=== PATIENT | male | born 1970 ===

== ENCOUNTER 2024-03-14 14:58 | Emergency (ER) | payer OTHER, SELFPAY ==
[2024-03-14 15:00] VITALS: BP 205/106
[2024-03-14 15:28] VITALS: BMI 43.9
--- NOTE | 2024-03-14 15:28 | ED.GENMED ---
History of Present Illness
<Carolina Fang PA-C - Last Filed: 03/14/24 18:57>
General
Chief Complaint: Abdominal Pain
Source: patient and family (sister at bedside)
Exam Limitations: none
Time Seen by Provider: 03/14/24 15:18
Nursing documentation reviewed up to this point in time: agreed with
History of Present Illness
History of Present Illness:
53-year-old male with history hypertension, hyperlipidemia, gout presenting to the emergency department for evaluation of acute onset left flank pain about 2 hours prior to arrival. Patient states he was standing up having a drink when he noticed
severe, sharp pain in his left flank radiating around to his left groin. Pain has been relatively constant since. Patient endorses some mild associated nausea and diaphoresis. Patient denies any associated fevers, vomiting, chest pain, shortness
of breath. No urinary symptoms. No history of kidney stones.
Patient does note that he has had this very intermittent pain in his left upper flank over the past few months which she thought was a muscle strain.
Review of Systems
<Carolina Fang PA-C - Last Filed: 03/14/24 18:57>
Review of Systems
Allergies reviewed?: Yes
All Other Systems: ROS reviewed and negative except as documented in HPI and ROS
Phy Exam
<Carolina Fang PA-C - Last Filed: 03/14/24 18:57>
Physical Exam
Physical Exam:
Vitals: Hypertensive, otherwise vital signs stable. Afebrile
General: Patient is moderately uncomfortable due to pain. Nontoxic appearing
Skin: Warm and dry, no rashes or lesions
Head: Normocephalic, atraumatic
Eyes: Sclera nonicteric. EOMs intact. No nystagmus.
Throat: Protecting airway
Neck: Normal ROM, no cervical spine tenderness, no meningismus
Cardiac: Regular rate and rhythm, no murmurs.
Pulm: Normal respiratory effort, no wheezes, rales, rhonchi heard on exam.
Abdomen: Abdomen soft. No abdominal tenderness. No CVA tenderness. No rash or ecchymoses.
Extremities: No evidence of cyanosis or edema. Great distal pulses
Neuro: Grossly intact.
Psychiatric: Normal affect.
Course
<Carolina Fang PA-C - Last Filed: 03/14/24 18:57>
Orders/Labs/Results
Orders:
Orders
03/14/24 15:29
0.9% Sodium Chloride 1000 ml [Nss] 1,000 ml IV BOLUS
Ketorolac [Toradol] 15 mg IV NOW STA
Ondansetron Injectable [Zofran] 4 mg IV NOW STA
03/14/24 15:30
CT Abd/pel Without Iv Or Oral Urgent
Comment:
Reason For Exam: Acute onset left flank pain
03/14/24 15:43
Complete Blood Count/With Diff Urgent
Comprehensive Metabolic Panel Urgent
Urinalysis Reflex To Culture Urgent
Date Specimen was Collected: 03/14/24
Time Specimen was Collected: 15:31
Urine Microscopic Reflex Cult Urgent
Urine Culture Urgent
FOSTER Source: U
Specimen Description:
Date Specimen was Collected: 03/14/24
Time Specimen was Collected: 15:31
03/14/24 17:27
Tamsulosin [Flomax] 0.4 mg PO NOW STA
Abnormal Lab Results
03/14/24
15:43
Abs Immat Gran (auto) 0.1 H 10^3/uL
(0-0.05)
Absolute Neuts (auto) 7.0 H 10^3/uL
(1.4-6.5)
Absolute Monos (auto) 0.7 H 10^3/uL
(0.1-0.6)
Lymphocytes % 18.9 L %
(20.5-51.1)
BUN 27 H mg/dl
(9-20)
Glucose 115 H mg/dl
(70-99)
Total Bilirubin 2.1 H mg/dl
(0.2-1.3)
ALT 57 H U/L
(0-50)
Albumin 5.1 H g/dl
(3.5-5.0)
Urine Ketones Trace A
(Negative)
Ur Occult Blood Reflex 4+ A
(Negative)
Urine RBC 50-60 A /HPF
(0-2)
Urine Bacteria (Reflex) Many A
(Negative)
03/14/24 15:43
03/14/24 15:43
Vital Signs
Initial and Last Documented VS:
Initial Vital Signs
Temp Pulse Resp BP Pulse Ox
97.6 F 74 16 205/106 98
03/14/24 15:00 03/14/24 15:00 03/14/24 15:00 03/14/24 15:00 03/14/24 15:00
Last Documented Vital Signs
Temp Pulse Resp BP Pulse Ox
97.6 F 74 20 146/91 98
03/14/24 15:00 03/14/24 15:00 03/14/24 17:24 03/14/24 17:24 03/14/24 15:00
<Roberta Estrella DO - Last Filed: 03/15/24 12:45>
Orders/Labs/Results
Orders:
Orders
03/14/24 15:29
0.9% Sodium Chloride 1000 ml [Nss] 1,000 ml IV BOLUS
Ketorolac [Toradol] 15 mg IV NOW STA
Ondansetron Injectable [Zofran] 4 mg IV NOW STA
03/14/24 15:30
CT Abd/pel Without Iv Or Oral Urgent
Comment:
Reason For Exam: Acute onset left flank pain
03/14/24 15:43
Complete Blood Count/With Diff Urgent
Comprehensive Metabolic Panel Urgent
Urinalysis Reflex To Culture Urgent
Date Specimen was Collected: 03/14/24
Time Specimen was Collected: 15:31
Urine Microscopic Reflex Cult Urgent
Urine Culture Urgent
FOSTER Source: U
Specimen Description:
Date Specimen was Collected: 03/14/24
Time Specimen was Collected: 15:31
03/14/24 17:27
Tamsulosin [Flomax] 0.4 mg PO NOW STA
Abnormal Lab Results
03/14/24
15:43
Abs Immat Gran (auto) 0.1 H 10^3/uL
(0-0.05)
Absolute Neuts (auto) 7.0 H 10^3/uL
(1.4-6.5)
Absolute Monos (auto) 0.7 H 10^3/uL
(0.1-0.6)
Lymphocytes % 18.9 L %
(20.5-51.1)
BUN 27 H mg/dl
(9-20)
Glucose 115 H mg/dl
(70-99)
Total Bilirubin 2.1 H mg/dl
(0.2-1.3)
ALT 57 H U/L
(0-50)
Albumin 5.1 H g/dl
(3.5-5.0)
Urine Ketones Trace A
(Negative)
Ur Occult Blood Reflex 4+ A
(Negative)
Urine RBC 50-60 A /HPF
(0-2)
Urine Bacteria (Reflex) Many A
(Negative)
03/14/24 15:43
03/14/24 15:43
Vital Signs
Initial and Last Documented VS:
Initial Vital Signs
Temp Pulse Resp BP Pulse Ox
97.6 F 74 16 205/106 98
10/06/24 15:00 03/14/24 15:00 03/14/24 15:00 03/14/24 15:00 03/14/24 15:00
Last Documented Vital Signs
Temp Pulse Resp BP Pulse Ox
97.6 F 74 20 146/91 98
03/14/24 15:00 03/14/24 15:00 03/14/24 17:24 03/14/24 17:24 03/14/24 15:00
<Carolina Fang PA-C - Last Filed: 03/14/24 18:57>
MDM/Problems Addressed
Differential Diagnosis Includes:
Not limited to: Kidney stone, muscle strain, zoster, diverticulitis, UTI, etc.
MDM/Problems Addressed:
53-year-old male with 2 hours of acute onset left flank pain. Mild associated nausea and diaphoresis. No urinary symptoms or history of kidney stones. Patient hypertensive on arrival, likely secondary to pain. Cardio/pulmonary assessment
unremarkable. Abdomen soft and nontender. No CVA tenderness. No evidence of rash to suggest zoster. Patient is perfusing well. Differential broad at this time although symptoms consistent with possible renal colic secondary to kidney stone.
Will check labs, UA, CT abdomen/pelvis. Will treat pain, give IV fluids. Will closely monitor and reassess.
Chronic conditions affecting care:
Hypertension
Acute Exacerbation and/or Progression of Chronic Illness:
Acutely hypertensive
<Carolina Fang PA-C - Last Filed: 03/14/24 18:57>
*Radiology
Radiology exam reviewed: preliminary read by ED provider (2 mm distal left ureteral stone) and radiology read reviewed
*Pulse Oximetry
Patient hypoxic: no
*EKG
Interpreted by ED Provider?: NA
*Oceanographer Assistant Interpretation
Rate: Oceanographer Assistant- N/A
*Critical Care Note
Total Time (30-74mins, 75-104mins- exclusive of procedures): Not Applicable
<Carolina Fang PA-C - Last Filed: 03/14/24 18:57>
Update Note
Update Note:
Update 4:40PM: Into reassess patient at bedside. Patient states almost complete resolution of pain following dose of Toradol. Labs reviewed. No leukocytosis. No evidence of renal insufficiency. Elevated bilirubin of 2.1�nonspecific. Patient
just returned back from CAT scan. Report pending. UA pending.
Update 5:17 PM: CT report reviewed. 2 mm distal ureteral stone noted with mild left hydro. Urine is positive for blood, although does not appear infected. Patient responded very well to 1 dose of Toradol in emergency department has been
comfortable. Stable for discharge with urology follow-up. Return precautions discussed. Will discharge with Flomax, pain management. Patient seen with attending physician.
ED Attending Note
<Carolina Fang PA-C - Last Filed: 03/14/24 18:57>
-
Portions of this chart may have been created with voice recognition software.� Occasional wrong word or��sound alike� substitutions may have occurred due to the inherent limitations of voice recognition software.
<Roberta Estrella DO - Last Filed: 03/15/24 12:45>
ED Attending Note
Patient seen and examined by attending physician: Yes
I performed the substantive portion of visit, reviewed & personally made and approve the management plan that is documented in note by myself or HATTIE.: Yes
I performed a history and physical exam of patient and discussed management with resident, I reviewed resident's note and agree with documented findings and plan of care.: Yes
ED Attending Note:
53-year-old male with history of hypertension, hyperlipidemia, gout presenting to the emergency department for acute onset of left flank pain. Symptoms started about 2 hours prior to arrival, radiating across abdomen. Prior to onset of symptoms,
denies any urinary complaints. Denies chest pain or difficulty breathing. Reports nausea without vomiting. Denies history of kidney stones in the past. Vital signs on arrival significant for hypertension.
On exam, patient very uncomfortable appearance, left CVA tenderness. No significant tenderness to the abdomen. Patient otherwise afebrile, nontoxic. Symptoms appear most consistent with kidney stone. Plan for laboratory analysis, urinalysis, CT
imaging.
17:20 - Patient's pain is much improved after Toradol and IV fluids. CT is consistent with a 2 mm stone, with hydronephrosis. Normal renal function, no signs of UTI or concern for infectious stone. At this time feel stable for discharge with
continued outpatient supportive therapy. Will provide prescription for Flomax, pain control, and advised outpatient urologic follow-up. Return precautions discussed
Discharge Plan
Departure
Patient Disposition: Home (Routine Discharge)
Date of Disposition: 03/14/24
Time of Disposition: 17:20
Patient with high blood pressure during this ER visit?: Yes
Condition: Good
Covid-19: Not Applicable
Discharge Problem:
Calculus of distal left ureter
Instructions: Kidney Stone, Adult ED, BLOOD PRESSURE
Prescriptions:
New
ketorolac 10 mg tablet
10 mg PO Q6H PRN (Reason: Pain) Qty: 10 0RF
Rx Instructions:
maximum total duration of 5 days from all oral, intranasal, or parenteral formulations
tamsulosin [Flomax] 0.4 mg capsule
0.4 mg PO DAILY Qty: 14 0RF
oxycodone 5 mg tablet
5 mg PO Q8H PRN (Reason: Pain) Qty: 5 0RF
Referrals:
Palomo Harding MD [Active] - Next open appointment
NONE,* [Family Provider] -
Activity Restrictions/Additional Instructions:
RETURN TO THE EMERGENCY DEPARTMENT WITH ANY FEVERS/CHILLS, INTRACTABLE PAIN, INABILITY TO URINATE, SIGNS OF INFECTION, WORSENING IN CURRENT SYMPTOMS, OR ANY OTHER CONCERNS
-You can try ketorolac 10 mg every 6 hours as needed for pain. You should not take more than 40 mg/day. If you are unable to obtain this prescription at the pharmacy�you can take 600 mg of ibuprofen every 6-8 hours as needed for pain. You should
not take ketorolac and ibuprofen together. For very severe pain�you can take oxycodone as needed. This may cause drowsiness you should not take prior to driving.
-You should take Flomax once daily until you pass the stone. Strain your urine.
-It is important to stay well-hydrated.
-Follow-up with urology for further evaluation/management
Monitor your symptoms closely and return to the emergency department with any acute worsening/new symptoms
Interventions
Interventions:
*Risk Screen - Suicide Last Done: 03/14/24 15:03
*General Assessment Last Done: 03/14/24 15:28
*Neglect/Abuse Screening Last Done: 03/14/24 15:03
ED- Fall Risk Assessment Last Done: 03/14/24 15:30
*ED COVID-19 Vaccine History Last Done: 03/14/24 15:28
*Nursing Disposition Last Done: 03/14/24 17:44
XL-Lmbtyt-Hxdfspbhvs Assessment Last Done: 03/14/24 15:28
Discharge Date and Time
Discharge Date/Time: 03/14/24 17:45
Print Language: MICRONESIAN
[2024-03-14] MEDS: TORADOL 15 MG IV (15:41)
[2024-03-14] MEDS: NSS 1000 IV (15:41)
[2024-03-14] MEDS: ZOFRAN 4 MG IV (15:42)
[2024-03-14 15:56] LABS: % Basophils 0.7 % (0-2); % Eosinophils 1.4 % (0-6); % Immature Granulocytes 0.5 % (0-0.5); % Lymphocytes 18.9 % (20.5-51.1); % Monocytes 6.7 % (1.7-9.3); % Neutrophils 71.8 % (42.2-75.2); Absolute Basophils 0.1 10^3/uL (0-0.2); Absolute Eosinophils 0.1 10^3/uL (0-0.7); Absolute Immature Granulocytes 0.1 10^3/uL (0-0.05); Absolute Lymphocytes 1.9 10^3/uL (1.2-3.4); Absolute Monocytes 0.7 10^3/uL (0.1-0.6); Hematocrit 40.4 % (39.0-52.0); Hemoglobin 14.8 g/dL (13.0-18.0); Mean Corp Hgb Conc. 36.6 g/dL (33.0-37.0); Mean Corpuscular Volume 81.8 fL (80.0-94.0); Mean Platelet Volume 9.1 fL (7.4-10.4); Nucleated Red Blood Cells % 0 % (-); Platelet Count 194 10^3/uL (130-400); Red Blood Cell Count 4.94 10^6/uL (4.70-6.10); Red Cell Dist. Width 12.7 % (11.5-14.5); White Blood Cell Count 9.8 10^3/uL (4.8-10.8)
[2024-03-14 16:09] LABS: ALT (SGPT) 57 U/L (0-50); AST (SGOT) 37 U/L (17-59); Albumin 5.1 g/dl (3.5-5.0); Alkaline Phosphatase 57 U/L (38-126); Blood Urea Nitrogen 27 mg/dl (9-20); Calcium 9.9 mg/dl (8.4-10.2); Carbon Dioxide 25 mmol/L (22-30); Chloride 103 mmol/L (98-107); Estimated Creatinine Clearance 103 ml/min; Glucose 115 mg/dl (70-99); Potassium 4.3 mmol/L (3.5-5.1); Sodium 140 mmol/L (135-145); Total Bilirubin 2.1 mg/dl (0.2-1.3); Total Protein 7.5 g/dl (6.3-8.2); eGFR > 60.00
[2024-03-14 17:02] LABS: Urine Albumin Trace (Neg - Trace); Urine Bilirubin Negative (Negative); Urine Character Clear (Clear); Urine Color Yellow; Urine Glucose Negative (Negative); Urine Ketone Trace (Negative); Urine Leukocyte Negative (Negative); Urine Nitrite Negative (Negative); Urine Occult Blood 4+ (Negative); Urine Specific Gravity 1.025 (<1.030); Urine Urobilinogen Negative (Neg - 1+)
[2024-03-14 17:14] LABS: Urine Mucus Moderate
[2024-03-14 17:15] LABS: Urine Red Blood Cell 50-60 /HPF (0-2)
[2024-03-14 17:16] LABS: Urine Bacteria Many (Negative); Urine White Cell 0-2 /HPF (0-5)
[2024-03-14 17:24] VITALS: BP 146/91
[2024-03-14] MEDS: FLOMAX 0.4 MG PO (17:34)
== END 2024-03-14 17:45 | disposition home or self-care (01) ==
LOC: EMR 14:58
PROVIDERS: Physician Assistant; EMERGENCY PHYSICIAN Student in an Organized Health Care Education/Training Program
DX: N13.2 Hydronephrosis with renal and ureteral calculous obstruction (principal); I10 Essential (primary) hypertension; E78.00 Pure hypercholesterolemia, unspecified
CPT/HCPCS: 99284; 74176; 80053; 81003; 81015; 85025; 87086